=== PATIENT | female | born 1960 | race Caucasian/White ===

== ENCOUNTER → 2017-09-28 | Day surgery (SDC) | payer BC ==
[2017-09-28 07:18] VITALS: RESP 16; BMI 32.5
[2017-09-28 08:54] VITALS: BP 133/75; PULSE 59; TEMP 98
--- NOTE | 2017-09-28 09:20 | MM ---
EXAMINATION TYPE: MG stereo VAD BX RT DATE OF EXAM: 09/28/2017 COMPARISON: Outside mammogram August 28, 2017 and older study. CLINICAL HISTORY: Suspicious group of calcifications right breast. TECHNIQUE: Stereotactic guided core biopsy of right breast with clip placement and follow-up two-view mammogram. FINDINGS: The procedure of stereotactic guided core biopsy was explained to the patient. Benefits, alternatives, and risks were discussed. An informed consent was then obtained. [facility]. Shortness pathway was inferior approach. I performed the localization, then surgeon, Dr. Addison performed the remainder of the procedure. A vacuum assisted biopsy gun was used to obtain multiple core samples. The patient tolerated the procedure well without any immediate complication. The patient was kept in the radiology department for short stay after the procedure and then discharged home in stable condition. Targeted calcifications are identified in specimen mammogram. Post biopsy mammogram shows the clip to appear in satisfactory position relative to the targeted area of concern on the preprocedure images. No suspicious residual calcifications are present. IMPRESSION: SUCCESSFUL, UNCOMPLICATED STEREOTACTIC GUIDED CORE BIOPSY OF AREA OF CONCERN IN THE RIGHT BREAST, FULL PATHOLOGY RESULTS TO FOLLOW. Low index of suspicion noted at time of procedure. Pathology Results: High Risk RIGHT BREAST, SITE NOT OTHERWISE SPECIFIED (CORE BIOPSIES): PROLIFERATIVE FIBROCYSTIC CHANGES WITH SMALL RADIAL SCAR, CYST FORMATION, EARLY SCLEROSING ADENOSIS, AND MICROCALCIFICATIONS. Recommendation Surgical consult of the right breast. (for radial scar) MTDD
--- NOTE | 2017-09-28 10:21 | PCN ---
PROCEDURE NOTE The patient is a 56-year-old white female who on screening mammogram was noted to have an area of microcalcification of concern in the right breast. The location in the breast after review of the radiographs was in the lower lateral position of the breast. The patient had a breast examination performed. No supraclavicular, cervical, or axillary adenopathy of concern was noted. Multiple positional exam of each breast did not note any dominant mass or nodules of concern in either breast. No ultrasound was needed. The risks and benefits of the procedure were discussed with the patient and the patient wished to proceed with stereotactic core biopsy of the right breast. The location of the lesion was in the lower lateral portion of the right breast. The approach used was a CC from below the knee. The area was localized. The skin was prepped using Betadine and 1% lidocaine was used to anesthetize the area of concern. A 9-gauge vacuum-assisted needle was used and driven to the correct coordinates. Multiple core biopsies were obtained. Radiograph of the specimen was performed revealing microcalcifications in the specimen. A SecurMark was placed. The position of the marker was documented and the patient is going to follow with Dr. Addison as an outpatient. The specimen is being sent to . MMODL / IJN: [id number] /
== END ==
LOC: RADMAMWWP 06:53
PROVIDERS: ATTEND Surgery
DX: N60.12 Diffuse cystic mastopathy of left breast (principal); N60.21 Fibroadenosis of right breast; R92.0 Mammographic microcalcification found on diagnostic imaging of breast
CPT/HCPCS: 88305; 19081; A4648; J2001

== ENCOUNTER → 2017-11-24 | Outpatient (CLI) | payer BC ==
[2017-11-24 08:41] VITALS: BP 110/74; PULSE 68; TEMP 97.7; BMI 32.8
--- NOTE | 2017-11-24 09:30 | P.GSHP ---
History of Present Illness H&P Date: 11/24/17 Chief Complaint: radial scar status post stereo biopsy of the right breast The patient is a 56-year-old white female who is status post stereotactic core biopsy of the right breast on 09/28/2017. Pathology revealed a radial scar. After discussion it was decided that it would be best for her to undergo a needle localization and excisional biopsy of the area. Prior to stereotactic biopsy the patient did not feel any lesions of concern in her breasts. She did not have any nipple discharge or changes of concern. The mammogram was a routine mammogram. Initially it was felt that we could follow her conservatively however after we reviewed with pathology it was determined that it would be best for her to undergo needle localization and excisional biopsy of the area of radial scar. This is a second postoperative visit. Past surgical history: 1. Past medical history: 1. Hypertension Family history: no history of cancer menarche: 10 : 2, first at 19 breast fed: one menopause: 48 Social hsitory: smoke: stopped ten years ago alcohol: occasional drugs: none ROS: HEENT: none lung: none heart: none GI: none : none muscukeletal: arthritis neurologic: none skin: none bleeding: none - Constitutional Constitutional: Denies chills, Denies fever - EENT Eyes: bilateral as per HPI Ears: deny: decreased hearing, ear discharge, earache, tinnitus Ears, nose, mouth and throat: Denies headache, Denies sore throat - Breasts Breasts: bilateral: as per HPI - Cardiovascular Cardiovascular: Reports high blood pressure, Denies chest pain, Denies shortness of breath - Respiratory Respiratory: Denies cough, Denies 7 - Gastrointestinal Gastrointestinal: Denies abdominal pain, Denies diarrhea, Denies nausea, Denies vomiting - Musculoskeletal Musculoskeletal: Denies myalgias - Integumentary Integumentary: Denies pruritus, Denies rash - Neurological Neurological: Denies numbness, Denies weakness - Psychiatric Psychiatric: Denies anxiety, Denies depression - Endocrine Endocrine: Denies fatigue, Denies weight change - Hematologic/Lymphatic Comment: none - Allergic/Immunologic Allergic/Immunologic: Reports seasonal allergies Past Medical History Past Medical History: Hypertension History of Any Multi-Drug Resistant Organisms: None Reported Past Surgical History: Section Past Anesthesia/Blood Transfusion Reactions: No Reported Reaction Past Psychological History: No Psychological Hx Reported Smoking Status: Former smoker Past Alcohol Use History: Occasional Past Drug Use History: None Reported - Past Family History Mother Family Medical History: Hyperlipidemia Medications and Allergies Home Medications Medication Instructions Recorded Confirmed Type Calcium Carbonate/Vitamin D3 1 each PO BID 09/14/17 11/24/17 History [Caltrate 600 Plus D3 Tablet] Hydrochlorothiazide [Hydrodiuril] 25 mg PO QAM 09/14/17 11/24/17 History Lisinopril [Zestril] 10 mg PO HS 09/14/17 11/24/17 History Allergies Allergy/AdvReac Type Severity Reaction Status Date / Time No Known Allergies Allergy Verified 09/28/17 07:09 Surgical - Exam Vital Signs Temp Pulse BP Pulse Ox 97.7 F 68 110/74 98 11/24/17 08:38 11/24/17 08:38 11/24/17 08:38 11/24/17 08:38 - General well developed, well nourished, moderate distress - Eyes normal ocular movement, no icteric - ENT no hearing loss, no congestion - Neck no masses, trachea midline - Respiratory normal respiratory effort, clear to auscultation - Cardiovascular Rhythm: regular Heart Sounds: normal: S1, S2 - Abdomen Abdomen: soft, non tender, no guarding, no rigid, no rebound - Neurologic no disoriented, no combative - Musculoskeletal normal gait, normal posture - Psychiatric oriented to time, oriented to person, oriented to place, speech is normal, memory intact right breast: no masses prior site of stero biopsy well healed left breast: no masses bilateral axilla: no adenopathy of concern Results pathology reviewed Assessment and Plan Assessment: Imp/Plan 1. stero biopsy results reviewed with the patient. Initially we had hoped to follow conservatively however after review again with pathology it is felt that it would be best to do a needle localization and excisional biopsy of the area of radial scar. 2. Hypertension Plan: 1. Needle localization excisional biopsy of radial scar area. The patient understands the risks and benefits and wishes to proceed. Risks include bleeding infection reaction to anesthetic possibility we would not sampled the area. The patient will be scheduled in the near future. Please note that this is a postoperative visit. Cc: Dr. Spears
== END ==
LOC: WWCWWP 08:33
PROVIDERS: ATTEND Surgery
DX: Z53.9 Procedure and treatment not carried out, unspecified reason (principal)

== ENCOUNTER 2017-12-05 06:44 | Day surgery (SDC) | payer BC ==
[2017-11-30 15:41] VITALS: BMI 32.8
[~2017-12-05 06:44] MED LIST: ALPRAZolam 0.5 MG TAB PO PRN; DEXAMETHASONE SOD PHOSPHATE 10 MG/ML 1 ML VIAL IV ONE; HEPARIN SODIUM,PORCINE 5,000 UNIT/ML 1 ML VIAL SQ ONE; HYDROmorphone 0.5 MG/0.5 ML SYRINGE IVP PRN; LACTATED RINGERS 1,000 ML IV SCH; MORPHINE SULFATE 2 MG/ML SYRINGE IV PRN; ONDANSETRON 4 MG/2 ML VIAL IVP ONE; ONDANSETRON 4 MG/2 ML VIAL IVP PRN; Pre Op ABX Message 1 EACH MISC MISCELLANE ONE
[2017-12-05] MEDS ORDERED: LIDOCAINE 1% 20 ML VIAL (10MG/ML) FOR IV START INTRADERMA ONE (07:29)
[2017-12-05] MEDS ORDERED: SODIUM BICARB 4% 5 ML VIAL (0.48 MEQ/ML) MISCELLANE ONE (08:27)
[2017-12-05] MEDS ORDERED: LIDOCAINE 1% INJ 10MG/ML (20 ML MDV) SQ ONE ×3 (08:27→09:28)
[2017-12-05] MEDS ORDERED: MIDAZOLAM 2 MG/2 ML VIAL ONE (09:10)
[2017-12-05] MEDS ORDERED: LIDOCAINE 1% INJ 10MG/ML (20 ML MDV) ONE (09:10)
[2017-12-05] MEDS ORDERED: PROPOFOL 10 MG/ML 20 ML VIAL IV ONE (09:10)
[2017-12-05] MEDS ORDERED: fentaNYL (PF) 50 MCG/ML 2 ML AMP ONE (09:10)
[2017-12-05] MEDS ORDERED: HEPARIN SODIUM,PORCINE 5,000 UNIT/ML 1 ML VIAL SQ ONE (09:11)
[2017-12-05] MEDS ORDERED: LACTATED RINGERS 1,000 ML IV ONE (09:20)
--- NOTE | 2017-12-05 10:16 | P.OP ---
Date of Procedure: 12/05/17 Preoperative Diagnosis: Right breast radial scar on core biopsy Postoperative Diagnosis: same Procedure(s) Performed: needle Localization excisional biopsy area of concern right breast with titanium clip placement Anesthesia: GARIMAA Surgeon: Alejandra Addison Estimated Blood Loss (ml): 5 IV fluids (ml): 450 Pathology: other (right breast tissue) Condition: stable Disposition: PACU Indications for Procedure: radial Scar on right breast core biopsy Operative Findings: dense breast tissue Description of Procedure: The patient is a 57-year-old white female who underwent a stereotactic core biopsy of the right breast. Pathology revealed a radial scar and she was recommended to undergo needle localization and excisional biopsy. The patient was taken to the operating room following needle localization of area of concern in the right breast. Following induction of anesthesia the right breast was prepped and draped in a sterile fashion. Excision was performed around the area of the needle, hemostasis was attained using the electrocautery device. The specimen revealed the area of concern was present. After we were assured that hemostasis was attained the deep tissues were closed using a 3-0 Vicryl suture. Prior to this titanium clips were placed to localize the area of excision. The subcutaneous tissues were closed using a 4-0 Vicryl suture. The skin was closed using 4-0 Monocryl with Steri-Strips. The patient tolerated the procedure in stable condition. Prior to sending the specimen for radiographic evaluation it was painted for orientation. The patient tolerated the procedure in stable condition.
--- NOTE | 2017-12-05 10:18 | P.DS ---
Providers Attending physician: Alejandra Addison Primary care physician: Manish Spears Plan - Discharge Summary New Discharge Prescriptions: No Action Hydrochlorothiazide [Hydrodiuril] 25 mg PO QAM Lisinopril [Zestril] 10 mg PO HS Calcium Carbonate/Vitamin D3 [Caltrate 600 Plus D3 Tablet] 1 each PO BID Multivit/Folic Acid/Vit K1 [One-A-Day Women's 50 Plus Tab] 1 each PO DAILY Discharge Medication List Calcium Carbonate/Vitamin D3 [Caltrate 600 Plus D3 Tablet] 1 each PO BID [History] Hydrochlorothiazide [Hydrodiuril] 25 mg PO QAM 09/14/17 [History] Lisinopril [Zestril] 10 mg PO HS 09/14/17 [History] Multivit/Folic Acid/Vit K1 [One-A-Day Women's 50 Plus Tab] 1 each PO DAILY 11/30 [History] Follow up Appointment(s)/Referral(s): Alejandra Addison MD [STAFF PHYSICIAN] - 1 Week Activity/Diet/Wound Care/Special Instructions: Do not drive today Patient may shower after 24 hours Wear bra At all times until seen by Dr. Willoughby Discharge Disposition: HOME SELF-CARE
[2017-12-05 10:26] VITALS: TEMP 97.4
[2017-12-05 11:20] VITALS: BP 126/78; PULSE 84; RESP 24
--- NOTE | 2017-12-05 12:54 | MM ---
EXAMINATION TYPE: MG pre op needle loc RT DATE OF EXAM: 12/05/2017 COMPARISON: Mammogram 08/28/2017 CLINICAL HISTORY: Abnormal mammogram, radial scar TECHNIQUE: Needle localization with wire placement and surgical excision of area of concern in the right breast. FINDINGS: The procedure of needle localization with wire placement and than surgical excision was explained to the patient. Benefits, alternatives, and risks were discussed. An informed consent was then obtained. The shortest pathway for procedure was chosen. Lidocaine buffered with bicarbonate was used as anesthetic into the skin and subcutaneous tissue up to the level of area of concern. A 5 cm needle was used. It was placed via a lateral approach under mammographic guidance. Subsequent 90 degrees mammogram show the needle to be in satisfactory position relative to the targeted area. At this point, wire was placed and the needle was withdrawn. The wire was fixed to patient's skin. Images were marked for surgeon. The patient tolerated the procedure well without any immediate complication. The patient was kept in the radiology department for short stay after the procedure and then taken to surgery for surgical excision. Marker clip and wire are identified in specimen mammogram. The patient was kept in hospital for short stay after the procedure and then discharged home in stable condition. IMPRESSION: Successful, uncomplicated needle localization with wire placement and surgical excision of marker in the right breast, full pathology results to follow. Pathology Results: Benign RIGHT BREAST MASS, NEEDLE LOCALIZATION BIOPSY: Benign breast parenchyma showing a cyst with apocrine metaplasia, fibrocystic changes with sclerosing adenosis, usual type duct hyperplasia, apocrine metaplasia and prior biopsy artifact. Microcalcifications are noted. Recommendation Follow up mammogram of the right breast in 6 months. ANDREW
--- NOTE | 2017-12-05 15:03 | MM ---
Specimen radiograph HISTORY: Status post wire localization and excision Specimen radiograph shows the biopsy marker and wire to be present in specimen. Pathology Results: Benign RIGHT BREAST MASS, NEEDLE LOCALIZATION BIOPSY: Benign breast parenchyma showing a cyst with apocrine metaplasia, fibrocystic changes with sclerosing adenosis, usual type duct hyperplasia, apocrine metaplasia and prior biopsy artifact. Microcalcifications are noted. Recommendation Follow up mammogram of the right breast in 6 months. ANDREW
== END 2017-12-05 11:32 | disposition home or self-care (01) ==
LOC: OR 06:44
PROVIDERS: ATTEND Surgery
DX: N60.01 Solitary cyst of right breast (principal); N60.81 Other benign mammary dysplasias of right breast; N60.11 Diffuse cystic mastopathy of right breast; N60.21 Fibroadenosis of right breast; N60.91 Unspecified benign mammary dysplasia of right breast; R92.0 Mammographic microcalcification found on diagnostic imaging of breast; I10 Essential (primary) hypertension; M19.90 Unspecified osteoarthritis, unspecified site; J30.2 Other seasonal allergic rhinitis; E07.9 Disorder of thyroid, unspecified; Z79.899 Other long term (current) drug therapy; Z87.891 Personal history of nicotine dependence
CPT/HCPCS: 19125; 88307; 76098; 19281; J2250; J1644; J1100; J2405; J2001; J3010; J2704

== ENCOUNTER → 2017-12-14 | Outpatient (CLI) | payer BC ==
--- NOTE | 2017-12-14 13:05 | P.PN ---
Progress Note - Text Progress Note Date: 12/14/17 Patient is 57-year-old white female status post right breast needle local excisional biopsy. Pathology was benign. Patient has a small area of ecchymosis near the area of the biopsy. She has no complaints. She denies any pain. There is no evidence of any infection. Examination: Incision is clean and dry area of ecchymosis Impression/plan: 1. Follow-up in 2 weeks to reevaluate the area of ecchymosis 2. Right breast mammogram and physician exam in 6 months CC: Dr. Seaman
[2017-12-14 14:32] VITALS: BP 116/75; PULSE 76; BMI 33.2
== END ==
LOC: WWCWWP 12:31
PROVIDERS: ATTEND Surgery
DX: Z53.9 Procedure and treatment not carried out, unspecified reason (principal)

== ENCOUNTER → 2017-12-29 | Outpatient (CLI) | payer BC ==
[2017-12-29 10:21] VITALS: BP 134/65; PULSE 66; TEMP 97.3; BMI 32.8
--- NOTE | 2017-12-29 11:08 | P.PN ---
Subjective Progress Note Date: 12/29/17 Patient is a 57-year-old white female status post right breast excisional biopsy for a radial scar done on . Pathology was benign. At this time the patient is doing well with no complaints. There is no evidence of any erythema or fever. Lungs clear Heart: Regular rate and rhythm Incision: Clean and dry well-healed no evidence of infection Impression/plan: 1. Patient status post excisional biopsy for radial scar 2. Repeat right breast mammogram and physician exam in 6 months time from the biopsy CC: Dr. Spears Objective - Vital Signs Vital signs: Vital Signs Temp 97.3 F L 12/29/17 10:18 Pulse 66 12/29/17 10:18 Resp BP 134/65 12/29/17 10:18 Pulse Ox 98 12/29/17 10:18 Intake & Output 12/28/17 12/29/17 12/29/17 18:59 06:59 18:59 Weight 95.254 kg
== END | disposition home or self-care (01) ==
LOC: WWCWWP 10:09
PROVIDERS: ATTEND Surgery
DX: Z98.890 Other specified postprocedural states (principal); Z51.89 Encounter for other specified aftercare

== ENCOUNTER → 2018-06-28 | Outpatient (CLI) | payer BC ==
--- NOTE | 2018-06-28 13:24 | MM ---
Reason for exam: follow-up at short interval from prior study. Last mammogram was performed 4 years ago. History: Patient is postmenopausal and has history of high-risk lesion on a previous biopsy at age 56. Family history of breast cancer in paternal aunt. Benign MG pre op needle loc RT of the right breast, December 05, 2017. High risk MG stereo VAD BX RT of the right breast, September 28, 2017. Physical Findings: Nurse did not find any significant physical abnormalities on exam. MG 3D Diag Mammo W/Cad RT Spot compression CC, spot compression MLO, and ML view(s) were taken of the right breast. Prior study comparison: July 01, 2014, left breast MG work up mamm w CAD LT. June 25, 2014, bilateral MG screening mammo w CAD. The breast tissue is heterogeneously dense. This may lower the sensitivity of mammography. Stable benign calcifications. Post biopsy changes in the left breast. These results were verbally communicated with the patient and result sheet given to the patient on 06/28/18. ASSESSMENT: Benign, BI-RAD 2 RECOMMENDATION: Routine screening mammogram of both breasts in 6 months. Back on schedule.
== END | disposition home or self-care (01) ==
LOC: RADMAMWWP 06:56
PROVIDERS: ATTEND Surgery
DX: R92.8 Other abnormal and inconclusive findings on diagnostic imaging of breast (principal)
CPT/HCPCS: 77061; 77065

== ENCOUNTER → 2018-07-06 | Outpatient (CLI) | payer BC ==
[2018-07-06 09:51] VITALS: BP 129/82; PULSE 54; RESP 18; TEMP 97.6; BMI 31.3
--- NOTE | 2018-07-06 10:08 | P.PN ---
Subjective Progress Note Date: 07/06/18 Principal diagnosis: radial scar right breast Cintia is a 57-year-old white female status post right breast biopsy in December 2017. Pathology revealed a radial scar. The patient has no complaints related to her breast at this time. A repeat right breast mammogram was performed . This was felt to be stable and postbiopsy changes were noted in routine screening of both breasts in 6 months was recommended. Objective - Vital Signs Vital signs: Vital Signs Temp 97.6 F 07/06/18 09:47 Pulse 54 L 07/06/18 09:47 Resp 18 07/06/18 09:47 BP 129/82 07/06/18 09:47 Pulse Ox 98 07/06/18 09:47 Intake & Output 07/05/18 07/06/18 07/06/18 18:59 06:59 18:59 Weight 90.718 kg - Exam BMI 31.3 - Constitutional General appearance: Present: cooperative, obese - EENT Eyes: Present: EOMI ENT: Present: hearing grossly normal - Neck Neck: Present: normal ROM - Respiratory Respiratory: bilateral: CTA - Cardiovascular Rhythm: regular Heart sounds: normal: S1, S2 - Gastrointestinal General gastrointestinal: Present: soft - Integumentary Integumentary: Present: normal turgor - Musculoskeletal Musculoskeletal: Present: gait normal - Psychiatric Psychiatric: Present: A&O x's 3, appropriate affect, intact judgment & insight - Additional findings Additional findings: breast exam: Right breast: Multi-positional exam no dominant masses or nodules of concern, well-healed scar from prior biopsy Right axilla: No adenopathy of concern Left breast: Multi-positional exam no dominant masses or nodules of concern Left axilla: No adenopathy of concern Assessment and Plan Assessment: Impression: 1. Stable mammogram status post biopsy right breast approximately 6 months ago Plan: 1. Fibrocystic breast changes 2. Bilateral mammogram in 6 months with physician exam at that time CC: Dr. Spears
== END ==
LOC: WWCWWP 09:33
PROVIDERS: ATTEND Surgery
DX: Z53.9 Procedure and treatment not carried out, unspecified reason (principal)

== ENCOUNTER → 2019-01-09 | Outpatient (CLI) | payer BC ==
--- NOTE | 2019-01-10 13:05 | MM ---
Reason for exam: screening (asymptomatic). Last mammogram was performed 6 months ago. History: Patient is postmenopausal and has history of high-risk lesion on a previous biopsy at age 56. Family history of breast cancer in paternal aunt. Benign MG pre op needle loc RT of the right breast, December 05, 2017. High risk MG stereo VAD BX RT of the right breast, September 28, 2017. Physical Findings: A clinical breast exam by your physician is recommended on an annual basis and results should be correlated with mammographic findings. MG Screening Mammo w CAD Bilateral CC and MLO view(s) were taken. Prior study comparison: June 28, 2018, right breast MG 3d diag mammo w/cad RT. July 01, 2014, left breast MG work up mamm w CAD LT. The breast tissue is extremely dense which could obscure a lesion on mammography. Benign appearing bilateral calcifications. No suspicious abnormality. Post therapy change on the right. No significant changes when compared with prior studies. ASSESSMENT: Benign, BI-RAD 2 RECOMMENDATION: Routine screening mammogram of both breasts in 1 year.
== END | disposition home or self-care (01) ==
LOC: RADMAMWWP 07:17
PROVIDERS: ATTEND Surgery
DX: Z12.31 Encounter for screening mammogram for malignant neoplasm of breast (principal)
CPT/HCPCS: 77067

== ENCOUNTER → 2019-01-17 | Outpatient (CLI) | payer BC ==
[2019-01-17 09:45] VITALS: BP 151/81; PULSE 53; RESP 18; TEMP 98.2; BMI 30.5
--- NOTE | 2019-01-17 10:10 | P.PN ---
Subjective Progress Note Date: 01/17/19 Principal diagnosis: fibrocystic breast changes The patient is a 56-year-old white female who is status post stereotactic core biopsy of the right breast on 09/28/2017. Pathology revealed a radial scar. After discussion it was decided that it would be best for her to undergo a needle localization and excisional biopsy of the area, this was done in December of 2017. The patient had a right breast mammogram in June 2018 which is felt to be stable, and bilateral mammogram in 6 months was recommended to be back on schedule. She had a bilateral mammogram on 01-09-19 which was felt to be benign BIRADS 2. The patient has no history of any trauma or infection in her breast. She has no complaints of any adenopathy or nodularity in her breast for which she is concerned. Past surgical history: 1. 2. right breast open biopsy Past medical history: 1. Hypertension Family history: no history of cancer Hormonal History menarche: 10 : 2, first at 19 breast fed: one menopause: 48 Social history: smoke: stopped ten years ago alcohol: occasional drugs: none Review of systems: HEENT: Wears glasses Lungs: Negative Heart: Negative GI: Negative : History tract infections in the past Musculoskeletal: Negative ALLERGIES: Seasonal Hematologic: Negative Objective - Vital Signs Vital signs: Vital Signs Temp 98.2 F 01/17/19 09:43 Pulse 53 L 01/17/19 09:43 Resp 18 01/17/19 09:43 BP 151/81 01/17/19 09:43 Pulse Ox 98 01/17/19 09:43 Intake & Output 01/16/19 01/17/19 01/17/19 18:59 06:59 18:59 Weight 88.451 kg - Exam BMI 30.5 - Constitutional General appearance: Present: average body habitus - EENT Eyes: Present: EOMI ENT: Present: hearing grossly normal - Neck Neck: Present: normal ROM - Respiratory Respiratory: bilateral: CTA - Cardiovascular Rhythm: regular Heart sounds: normal: S1, S2 - Gastrointestinal Gastrointestinal Comment(s): no guarding or rebound General gastrointestinal: Present: soft - Integumentary Integumentary: Present: normal turgor - Musculoskeletal Musculoskeletal: Present: gait normal - Psychiatric Psychiatric: Present: A&O x's 3, appropriate affect, intact judgment & insight - Additional findings Additional findings: Breast examination: Right breast: Multi-positional exam no dominant masses or nodules of concern Right axilla: No adenopathy of concern Left breast: Multiple positional exam no dominant masses or nodules of concern Left axilla: No adenopathy of concern Assessment and Plan Assessment: Impression: 1. Fibrocystic breast changes 2. Mammogram BIRADS 2 3. Prior history of radial scar in the breast 4. Hypertension Plan: 1. Follow-up bilateral mammogram and exam in 1 year 2. Follow-up sooner if anything of concern CC: Dr. Manish briones
== END | disposition home or self-care (01) ==
LOC: WWCWWP 09:20
PROVIDERS: ATTEND Surgery
DX: Z53.9 Procedure and treatment not carried out, unspecified reason (principal)

== ENCOUNTER → 2020-01-13 | Outpatient (CLI) | payer BC ==
--- NOTE | 2020-01-15 10:21 | MM ---
Reason for exam: screening (asymptomatic). Last mammogram was performed 1 year ago. History: Patient is postmenopausal and has history of high-risk lesion on a previous biopsy at age 56. Family history of breast cancer in paternal aunt. Benign MG pre op needle loc RT of the right breast, December 05, 2017. High risk MG stereo VAD BX RT of the right breast, September 28, 2017. Physical Findings: A clinical breast exam by your physician is recommended on an annual basis and results should be correlated with mammographic findings. MG Screening Mammo w CAD Bilateral CC and MLO view(s) were taken. Prior study comparison: January 09, 2019, bilateral MG screening mammo w CAD. June 28, 2018, right breast MG 3d diag mammo w/cad RT. The breast tissue is extremely dense which could obscure a lesion on mammography. Post surgical changes right breast, stable. No significant changes when compared with prior studies. ASSESSMENT: Benign, BI-RAD 2 RECOMMENDATION: Routine screening mammogram of both breasts in 1 year.
== END | disposition home or self-care (01) ==
LOC: RADMAMWWP 08:04
PROVIDERS: ATTEND Surgery
DX: Z12.31 Encounter for screening mammogram for malignant neoplasm of breast (principal)
CPT/HCPCS: 77067

== ENCOUNTER → 2021-01-18 | Outpatient (CLI) | payer BC ==
--- NOTE | 2021-01-19 15:05 | MM ---
Reason for exam: screening (asymptomatic). Last mammogram was performed 1 year ago. History: Patient is postmenopausal and has history of high-risk lesion on a previous biopsy at age 56. Family history of breast cancer in paternal aunt. Benign MG pre op needle loc RT of the right breast, December 05, 2017. High risk MG stereo VAD BX RT of the right breast, September 28, 2017. Physical Findings: A clinical breast exam by your physician is recommended on an annual basis and results should be correlated with mammographic findings. MG Screening Mammo w CAD Bilateral CC and MLO view(s) were taken. Prior study comparison: January 13, 2020, bilateral MG screening mammo w CAD. January 09, 2019, bilateral MG screening mammo w CAD. June 28, 2018, right breast MG 3d diag mammo w/cad RT. The breast tissue is extremely dense which could obscure a lesion on mammography. Finding: There are intermediate concern, suspicious grouped/clustered, fine calcifications in the outer quadrant, middle position of the left breast on CC view, 9cm from the nipple. Post surgical changes right upper outer quadrant. New finding since January 13, 2020, January 09, 2019, and June 28, 2018. ASSESSMENT: Incomplete: need additional imaging evaluation, BI-RAD 0 RECOMMENDATION: Special view mammogram of the left breast. [facility] will attempt to contact patient to return for supplemental views.
== END | disposition home or self-care (01) ==
LOC: RADMAMWWP 07:57
PROVIDERS: ATTEND Surgery
DX: Z12.31 Encounter for screening mammogram for malignant neoplasm of breast (principal); Z78.0 Asymptomatic menopausal state; Z80.3 Family history of malignant neoplasm of breast
CPT/HCPCS: 77067

== ENCOUNTER → 2021-01-22 | Outpatient (CLI) | payer BC ==
[2021-01-22 10:34] VITALS: BP 145/83; PULSE 62; RESP 18; TEMP 97.6
--- NOTE | 2021-01-22 10:53 | P.PN ---
Subjective Progress Note Date: 01/22/21 Principal diagnosis: abnormal mammogram left breast Fibrocystic breast changes Cintia is a 60-year-old white female status post bilateral mammogram on . This was BIRAD 0 and additional views of the left breast recommended. The patient is status post a right breast stereo biopsy in 2018. Pathology revealed a radial scar. She subsequently underwent a needle localization and excisional biopsy in December 2017 which was benign. The patient has no complaints of any lumps masses or nodules in her breast. She is not complaining of any breast pain. She is had no recent history of any trauma or infection in the breast. Past surgical history: 1. 2. right breast open biopsy Past medical history: 1. Hypertension Family history: Maternal great aunt: Breast cancer Hormonal History menarche: 10 : 2, first at 19 breast fed: one menopause: 48 Social history: smoke: stopped 11 years ago alcohol: occasional drugs: none Review of systems: HEENT: Wears glasses Lungs: Negative Heart: Negative GI: Negative : urinary tract infections in the past Musculoskeletal: Negative ALLERGIES: Seasonal Hematologic: Negative Objective - Vital Signs Vital signs: Vital Signs Temp 97.6 F 01/22/21 10:32 Pulse 62 01/22/21 10:32 Resp 18 01/22/21 10:32 BP 145/83 01/22/21 10:32 Pulse Ox 98 01/22/21 10:32 Intake & Output 01/21/21 01/22/21 01/22/21 18:59 06:59 18:59 Weight 96.162 kg - Constitutional General appearance: Present: cooperative - EENT Eyes: Present: EOMI ENT: Present: hearing grossly normal - Neck Neck: Present: normal ROM - Respiratory Respiratory: bilateral: CTA - Cardiovascular Heart sounds: normal: S1, S2 - Integumentary Integumentary: Present: normal turgor - Musculoskeletal Musculoskeletal: Present: gait normal - Psychiatric Psychiatric: Present: A&O x's 3, appropriate affect, intact judgment & insight - Additional findings Additional findings: Breast Exam: BRA:40DD Inspection: Left breast larger than right breast, no skin dimpling or changes Palpation: Right breast: Multiple positional exam fibrocystic changes no dominant masses or nodules of concern Right axilla: No adenopathy of concern Left breast multiple positional exam fibrocystic changes, no dominant masses or nodules of concern Left axilla: No adenopathy of concern Mammogram reviewed personally with Dr. Zamora/microcalcifications of concern noted in the left breast Assessment and Plan Assessment: Impression: 1. Bilateral fibrocystic breast changes 2. Microcalcifications of concern left breast/recommend diagnostic mammogram 3. Remote family history of breast cancer Plan: At this time the patient states that she cannot afford to have a diagnostic mammogram. She will agree to a repeat diagnostic mammogram in 6 months. Of discussed with her that if this is a cancer that delay in diagnosis could be detrimental to her health she understands that and states that she cannot have the mammogram at this time. We have offered social work to see the patient and she has declined. The recommendation is for diagnostic mammogram at this time of the left breast. The patient has declined. She is in full understanding that doing so could result in delayed diagnosis of a breast cancer which could be detrimental to her health and even result in . CC: Dr. Spears
== END ==
LOC: WWCWWP 09:25
PROVIDERS: ATTEND Surgery
DX: N60.11 Diffuse cystic mastopathy of right breast (principal); N60.12 Diffuse cystic mastopathy of left breast; I10 Essential (primary) hypertension; Z80.3 Family history of malignant neoplasm of breast; Z87.891 Personal history of nicotine dependence

== ENCOUNTER → 2021-07-21 | Outpatient (CLI) | payer BC ==
--- NOTE | 2021-07-21 14:35 | MM ---
Reason for exam: additional evaluation requested from prior study. Last mammogram was performed 6 months ago. History: Patient is postmenopausal and has history of high-risk lesion on a previous biopsy at age 56. Family history of breast cancer in paternal aunt. Benign MG pre op needle loc RT of the right breast, December 05, 2017. High risk MG stereo VAD BX RT of the right breast, September 28, 2017. Physical Findings: Nurse did not find any significant physical abnormalities on exam. MG Diagnostic Mammo LT w CAD CC, MLO, CC with magnification, LM with magnification, and LM view(s) were taken of the left breast. Prior study comparison: January 18, 2021, bilateral MG screening mammo w CAD. January 13, 2020, bilateral MG screening mammo w CAD. The breast tissue is heterogeneously dense. This may lower the sensitivity of mammography. Finding: There are three fine, grouped/clustered calcifications in the posterior position of the left breast on CC, 12cm from the nipple. There is a chronic nodularity in the left breast. There is no discrete abnormality including area of concern outer CC left breast from 2020. New finding since January 18, 2021 and January 13, 2020. These results were verbally communicated with the patient and result sheet given to the patient on 07/21/21. ASSESSMENT: Suspicious, BI-RAD 4 RECOMMENDATION: Stereotactic core biopsy of the left breast. Called office with mammographic findings and has scheduled an appointment for the patient for 07/29/21 at 8:[address] Addison. PRELIMINARY REPORT CALLED AND FAXED TO DR. ADDISON ON 07/21/21.
== END | disposition home or self-care (01) ==
LOC: RADMAMWWP 07:40
PROVIDERS: ATTEND Surgery
DX: R92.8 Other abnormal and inconclusive findings on diagnostic imaging of breast (principal); R92.1 Mammographic calcification found on diagnostic imaging of breast; Z80.3 Family history of malignant neoplasm of breast; Z78.0 Asymptomatic menopausal state
CPT/HCPCS: 77065

== ENCOUNTER → 2021-07-29 | Outpatient (CLI) | payer BC ==
[2021-07-29 08:57] VITALS: BP 134/85; PULSE 70; RESP 18; TEMP 98.1
--- NOTE | 2021-07-29 09:16 | P.PN ---
Subjective Progress Note Date: 07/29/21 Principal diagnosis: abnormal left breast mammogram abnormal mammogram left breast Fibrocystic breast changes Cintia is a 60-year-old white female status post bilateral mammogram on . This was BIRAD 0 and additional views of the left breast recommended. The patient is status post a right breast stereo biopsy in 2018. Pathology revealed a radial scar. She subsequently underwent a needle localization and excisional biopsy in December 2017 which was benign. The patient has no complaints of any lumps masses or nodules in her breast. She is not complaining of any breast pain. She is had no recent history of any trauma or infection in the breast. The patient declined additional left breast mammogram at that time and agreed to a repeat in 6 months of the left breast. This was done on 07-21-21. This showed three fine grouped clustered calcifications in the left breast in the posterior position for which sterotactic biopsy was recommended. The patient does not note any new lumps masses or nodules of concern in either breast. Past surgical history: 1. 2. right breast open biopsy Past medical history: 1. Hypertension Family history: Maternal great aunt: Breast cancer Hormonal History menarche: 10 : 2, first at 19 breast fed: one menopause: 48 Social history: smoke: stopped 11 years ago alcohol: occasional drugs: none Review of systems: HEENT: Wears glasses Lungs: Negative Heart: Negative GI: Negative : urinary tract infections in the past Musculoskeletal: Negative ALLERGIES: Seasonal Hematologic: Negative Objective - Vital Signs Vital signs: Vital Signs Temp 98.1 F 07/29/21 08:55 Pulse 70 07/29/21 08:55 Resp 18 07/29/21 08:55 BP 134/85 07/29/21 08:55 Pulse Ox 97 07/29/21 08:55 Intake & Output 07/28/21 07/29/21 07/29/21 18:59 06:59 18:59 Weight 97.069 kg - Exam BMI 33.5 - Constitutional General appearance: Present: cooperative - EENT ENT: Present: hearing grossly normal - Neck Neck: Present: normal ROM - Respiratory Respiratory: bilateral: CTA - Cardiovascular Rhythm: regular Heart sounds: normal: S1, S2 - Gastrointestinal General gastrointestinal: Present: soft - Integumentary Integumentary: Present: normal turgor - Musculoskeletal Musculoskeletal: Present: gait normal - Psychiatric Psychiatric: Present: appropriate affect, intact judgment & insight - Additional findings Additional findings: Breast Exam: BRA: 40DD inspection bilateral grade 3 ptosis Palpation: Right breast: Multi-positional exam fibrocystic changes no dominant masses or nodules of concern Right axilla: No adenopathy of concern Left breast: Multi-positional exam fibrocystic changes no dominant masses or nodules of concern Left axilla: No adenopathy of concern Assessment and Plan Assessment: Impression: Radiographic abnormality left breast Fibrocystic breast changes Plan: Stereotactic core biopsy left breast Risks and benefits of procedure discussed. Risks include but are not limited to bleeding, infection, reaction to the anesthetic. If the results were to be discordant then possible open biopsy might be recommended. Alternatives such as watchful waiting or resection in the operating room are considered but not recommended. Patient understands and this will be scheduled in the near future CC: Dr. Spears
== END ==
LOC: WWCWWP 08:30
PROVIDERS: ATTEND Surgery
DX: N60.12 Diffuse cystic mastopathy of left breast (principal); I10 Essential (primary) hypertension; Z87.891 Personal history of nicotine dependence; Z79.899 Other long term (current) drug therapy

== ENCOUNTER → 2021-08-27 | Day surgery (SDC) | payer BC ==
[2021-08-27 07:14] VITALS: RESP 16; TEMP 98.6
[2021-08-27 09:02] VITALS: BP 133/83; PULSE 60
--- NOTE | 2021-08-27 09:17 | P.PCN ---
Date of Procedure: 08/27/21 Preoperative Diagnosis: microcalcifications of concern left breast Postoperative Diagnosis: Same Procedure(s) Performed: Stereotactic core biopsy left breast Anesthesia: local Surgeon: Alejandra Addison Pathology: other (Breast tissue with microcalcifications of concern noted radiographically) Condition: stable Disposition: same day Indications for Procedure: Microcalcifications of concern left breast Operative Findings: Radiographic specimen revealed microcalcifications of concern Description of Procedure: Cintia is a 60-year-old white female who on a mammogram was noted to have increasing calcifications of concern in her left breast in posterior position of the left breast 12 mL from the nipple. The mammograms were reviewed with radiology and it was felt this stereotactic core biopsy should be performed. The patient was examined and risk and benefits of the procedure were discussed with the patient. Risks include but are not limited to bleeding, infection, reaction to the anesthetic. Alternatives such as watchful waiting or open biopsy in the operating room were noted but not recommended. The patient agreed to stereotactic core biopsy. The patient was brought to the stereotactic core biopsy room. She was positioned prone on the lo-rad table. A alarm installation technician film was obtained. A CC from above approach was utilized. The area of concern was identified. The lesion was targeted. The breast was prepped using Betadine. 20 mL of 1% lidocaine were used to anesthetize the area of concern. A 12-gauge vacuum-assisted core rotating biopsy needle was driven to the correct coordinates. A prefire film was obtained and the needle was noted to be in the correct location. The needle was fired and the needle was noted to be in the correct location on a post-fire film. 12 core specimens were obtained. Radiograph of the specimen revealed that the microcalcifications of concern were sampled. A secure becki top hat clip was placed. Radiograph revealed that the post biopsy secure-becki clip was in the correct location. The patient tolerated the procedure in stable condition. The specimen was sent to pathology. The patient will follow-up with Dr. Willoughby next week.
--- NOTE | 2021-08-27 12:06 | MM ---
Cintia is a 60-year-old white female who on a mammogram was noted to have increasing calcifications of concern in her left breast in posterior position of the left breast 12 mL from the nipple. The mammograms were reviewed with radiology and it was felt that stereotactic core biopsy should be performed. The patient was examined and risk and benefits of the procedure were discussed with the patient. Risks include but are not limited to bleeding, infection, reaction to the anesthetic. Alternatives such as watchful waiting or open biopsy in the operating room were noted but not recommended. The patient agreed to stereotactic core biopsy. The patient was brought to the stereotactic core biopsy room. She was positioned prone on the lo-rad table. A principal process engineer film was obtained. A CC from above approach was utilized. The area of concern was identified. The lesion was targeted. The breast was prepped using Betadine. 20 mL of 1% lidocaine were used to anesthetize the area of concern. A 12-gauge vacuum-assisted core rotating biopsy needle was driven to the correct coordinates. A prefire film was obtained and the needle was noted to be in the correct location. The needle was fired and the needle was noted to be in the correct location on a post-fire film. 12 core specimens were obtained. Radiograph of the specimens revealed that the microcalcifications of concern were sampled. A secure becki top hat clip was placed. Radiograph revealed that the post biopsy secure-becki clip was in the correct location. The patient tolerated the procedure in stable condition. The specimen was sent to pathology. The patient will follow-up with Dr. Willoughby next week. ANDREW
== END | disposition home or self-care (01) ==
LOC: RADMAMWWP 06:59
PROVIDERS: ATTEND Surgery
DX: N60.22 Fibroadenosis of left breast (principal); R92.0 Mammographic microcalcification found on diagnostic imaging of breast
CPT/HCPCS: 19081; A4648; J2001; 88305

== ENCOUNTER → 2021-09-02 | Outpatient (CLI) | payer BC ==
[2021-09-02 15:40] VITALS: BP 144/69; PULSE 81; RESP 17; TEMP 97.9
--- NOTE | 2021-09-02 16:07 | P.PN ---
Subjective Progress Note Date: 09/02/21 Principal diagnosis: Atypical ductal hyperplasia left breast Cintia is a 60-year-old white female status post posterior tactic core biopsy of the left breast and 220 522. Pathology revealed focal atypical ductal hyperplasia/flat epithelial atypia with microcalcifications. Of significance is the fact that she underwent an open right breast biopsy after stereo biopsy in 2018. This was benign. The patient had no complaints of any lumps masses or nodules in her breast. She tolerated the stereotactic core biopsy without difficulty. Past surgical history: Right breast open biopsy Past medical history: Hypertension Family history: Maternal great aunt: Breast cancer Hormonal history: Menarche: 10 , breast fed positive, first at 19 Menopause: 48 Social history: Smoke: Stopped 11 years ago Alcohol: Occasional Drugs: Negative Review of systems: HEENT wears glasses Lungs: Negative Heart: Negative GI: Negative : Urinary tract infections in the past Musculoskeletal: Negative ALLERGIES: Seasonal Hematologic: Negative Objective - Vital Signs Vital signs: Vital Signs Temp 97.9 F 09/02/21 15:38 Pulse 81 09/02/21 15:38 Resp 17 09/02/21 15:38 BP 144/69 09/02/21 15:38 Pulse Ox 99 09/02/21 15:38 Intake & Output 09/01/21 09/02/21 09/02/21 18:59 06:59 18:59 Weight 96.615 kg - Exam BMI 33.4 - Constitutional General appearance: Present: cooperative - EENT Eyes: Present: EOMI ENT: Present: hearing grossly normal - Neck Neck: Present: normal ROM - Respiratory Respiratory: bilateral: CTA - Cardiovascular Rhythm: regular Heart sounds: normal: S1, S2 - Integumentary Integumentary: Present: normal - Musculoskeletal Musculoskeletal: Present: gait normal - Psychiatric Psychiatric: Present: A&O x's 3, appropriate affect, intact judgment & insight - Additional findings Additional findings: Breast Exam: BRA: 40DD Inspection: Right breast smaller than left breast, macromastia, bilateral grade 3 ptosis, bilateral shoulder notching Palpation: Right breast: Multi-positional exam fibrocystic changes no dominant masses or nodules of concern Right axilla: No adenopathy of concern Left breast: Multiple positional exam fibrocystic changes no dominant masses or nodules of concern After axilla: No adenopathy of concern Patient has some mild ecchymosis at the biopsy site on the left with no evidence of infection or hematoma Assessment and Plan Assessment: Impression: Atypical ductal hyperplasia left breast on stereotactic core biopsy Fibrocystic breast changes Plan: Needle localization excisional lumpectomy left breast, patient would like this done via reduction mammoplasty if possible Patient does have bilateral shoulder notching She has intermittent skin irritation and breakdown under her breasts secondary to the heaviness of the breast and the skin on skin
== END ==
LOC: WWCWWP 15:30
PROVIDERS: ATTEND Surgery
DX: N60.92 Unspecified benign mammary dysplasia of left breast (principal); N60.11 Diffuse cystic mastopathy of right breast; I10 Essential (primary) hypertension; Z87.891 Personal history of nicotine dependence

== ENCOUNTER 2021-11-30 07:14 | Day surgery (SDC) | payer BC ==
[2021-11-26 08:27] VITALS: BMI 33.3
[~2021-11-30 07:14] MED LIST changes: -ALPRAZolam 0.5 MG TAB PO PRN; -DEXAMETHASONE SOD PHOSPHATE 10 MG/ML 1 ML VIAL IV ONE; +DEXAMETHASONE SOD PHOSPHATE 4 MG/ML 1 ML VIAL IV ONE; -HEPARIN SODIUM,PORCINE 5,000 UNIT/ML 1 ML VIAL SQ ONE; +HEPARIN SODIUM,PORCINE/PF 5,000 UNIT/0.5 ML SYRINGE SQ PRN; +LIDOCAINE 1% (10MG/ML) FOR IV START INTRADERMA PRN; +METOCLOPRAMIDE 5 MG/ML 2 ML VIAL IVP PRN; -MORPHINE SULFATE 2 MG/ML SYRINGE IV PRN; -ONDANSETRON 4 MG/2 ML VIAL IVP PRN
[2021-11-30 07:31] VITALS: RESP 16
[2021-11-30] MEDS ORDERED: ONDANSETRON 4 MG/2 ML VIAL ONE (07:47)
[2021-11-30] MEDS ORDERED: LIDOCAINE 1% INJ 10MG/ML (20 ML MDV) SQ ONE ×2 (08:43→11:15)
[2021-11-30] MEDS ORDERED: LIDOCAINE 2% INJ 20 MG/ML (2 ML VIAL) ONE (10:46)
[2021-11-30] MEDS ORDERED: MIDAZOLAM 2 MG/2 ML VIAL ONE (10:46)
[2021-11-30] MEDS ORDERED: fentaNYL (PF) 50 MCG/ML 2 ML AMP ONE (10:46)
[2021-11-30] MEDS ORDERED: HYDROmorphone (PF) 1 MG/ML ONE (10:46)
[2021-11-30] MEDS ORDERED: PROPOFOL 10 MG/ML 20 ML VIAL IV ONE (10:46)
[2021-11-30] MEDS ORDERED: ePHEDrine 50 MG/ML 1 ML VIAL ONE (10:46)
[2021-11-30] MEDS ORDERED: SODIUM CHLORIDE 0.9% 50 ML with ceFAZolin 2,000 MG IV ONE ×2 (10:50)
--- NOTE | 2021-11-30 13:16 | P.OP ---
Date of Procedure: 11/30/21 Preoperative Diagnosis: Macromastia, atypical ductal hyperplasia on core biopsy Postoperative Diagnosis: Same Procedure(s) Performed: Left breast needle localization lumpectomy, reduction mammoplasty Anesthesia: GARIMAA Surgeon: Alejandra Addison Estimated Blood Loss (ml): 50 IV fluids (ml): 500 Pathology: other (breast tissue) Condition: stable Disposition: same day Indications for Procedure: Symptomatic macromastia, core biopsy atypical hyperplasia Operative Findings: Dense breast tissue Description of Procedure: Preoperatively the area of concern was localized in the radiology department. In the preoperative markings were placed for a reduction mammoplasty incisions. The patient was taken to the operative suite and following induction of anesthesia the left breast was prepped and draped in a sterile fashion. The area of the inferior pedicle was de-epithelialized. Using the markings placed in the preoperative area the incision through the reduction mammoplasty. The medial and lateral tissue wedges were excised. Partial resection of tissue was removed. The tiissue was weighed and weighed .53 Kilo. The area of the needle localization was clearly identified in this tissue was removed. This portion of the specimen was painted for orientation. Titanium clips were placed in the area of the needle localization had been performed. Should be noted that this was in the inferior pedicle portion of the breast. The specimen was sent to radiology and the area of concern appeared to have been removed. After assured that hemostasis was attained a #10 ELDON drain was placed laterally. This was secured in place using a nylon suture. The skin flaps were secured using 3-0 Vicryl suture. Interrupted 3-0 Vicryl sutures. Running 3-0 subcutaneous sutures were placed. This was followed by 4-0 subcuticular Monocryl sutures. Nylon skin sutures were placed. The patient tolerated the procedure in stable condition. All instrument and sponge counts were correct at the end of the case. The specimen was sent to pathology.
--- NOTE | 2021-11-30 13:18 | P.DS ---
Providers Attending physician: Alejandra Addison Primary care physician: Manish Spears Plan - Discharge Summary Discharge Rx Participant: No New Discharge Prescriptions: No Action hydroCHLOROthiazide [Hydrodiuril] 25 mg PO QAM lisinopriL [Zestril] 10 mg PO HS Calcium Carbonate/Vitamin D3 [Caltrate 600 Plus D3 Tablet] 1 each PO BID Atorvastatin [Lipitor] 10 mg PO HS Discharge Medication List Calcium Carbonate/Vitamin D3 [Caltrate 600 Plus D3 Tablet] 1 each PO BID 09/14/17 [History] hydroCHLOROthiazide [Hydrodiuril] 25 mg PO QAM 09/14/17 [History] lisinopriL [Zestril] 10 mg PO HS 09/14/17 [History] Atorvastatin [Lipitor] 10 mg PO HS 01/22/21 [History] Follow up Appointment(s)/Referral(s): Alejandra Addison MD [STAFF PHYSICIAN] - 1 Week Activity/Diet/Wound Care/Special Instructions: do not drive until seen by DR. Willoughby may shower after 72 hours wear bra at all times Discharge Disposition: HOME SELF-CARE
[2021-11-30 13:44] VITALS: TEMP 97
[2021-11-30 14:42] VITALS: BP 112/73; PULSE 87
--- NOTE | 2021-12-06 09:10 | MM ---
Risk Values: Marley 5 year model risk: 2.1%. NCI Lifetime model risk: 8.9%. Prior Study Comparison: 01/13/2020 Bilateral Screening Mammogram, [facility]. 01/18/2021 Bilateral Screening Mammogram, [facility]. 07/21/2021 Left Diagnostic Mammogram, [facility]. Pathology Description: Approach: CC FA Needle Type: 7 cm Kopan The procedure of needle localization with wire placement and than surgical excision was explained to the patient. Benefits, alternatives, and risks were discussed. An informed consent was then obtained. The shortest pathway for procedure was chosen. Shortest pathway was a superior approach. The overlying skin was prepped and draped in usual sterile fashion. Lidocaine was used as anesthetic into the skin and subcutaneous tissue up to the level of area of concern. 9 cm Kopans needle was used. It was placed via a superior approach under mammographic guidance. Subsequent 90 degrees mammogram show the needle to be in satisfactory position relative to the targeted area. At this point, wire was placed and the needle was withdrawn. The wire was fixed to patient's skin. Images were marked for surgeon. The patient tolerated the procedure well without any immediate complication. The patient was kept in the radiology department for short stay after the procedure and then taken to surgery for surgical excision. Targeted clip and residual calcifications, as well as the wire are identified in specimen mammogram. There is lumpectomy specimen as large in keeping with patient's reduction mammoplasty. The targeted site is located along the periphery of the specimen. The patient was kept in hospital for short stay after the procedure and then discharged home in stable condition. Impression: Successful, uncomplicated needle localization with wire placement and surgical excision of high risk ADH in the left breast, full pathology results to follow. Accompanying reduction mammoplasty. The targeted clip and residual microcalcifications are located along the periphery of the specimen. Pathology Results: Result: High risk, Atypical ductal hyperplasia. A. LEFT BREAST, LUMPECTOMY: Focal atypical ductal hyperplasia/flat epithelial atypia (ADH/FEA). See note. All margins benign. Sclerosing adenosis with microcalcification, fibrous scar with biopsy site change, focal usual ductal hyperplasia and fibrocystic change with columnar cell change. Sections examined negative for diagnostic features of in situ or invasive carcinoma. Benign skin with intradermal melanocytic nevus. B. DESIGNATED "REDUCTION MAMMOPLASTY TISSUE": Benign breast tissue with fibrosis, sclerosing adenosis and fibrocystic change with microcalcification and columnar cell change. All margins benign. All sections examined negative for diagnostic in situ or invasive carcinoma. Benign skin. Overall Assessment: High risk Management: Surgical Consultation of the left breast. Electronically signed and approved by: Lashonda Lomas M.D. Radiologist
--- NOTE | 2021-12-06 09:10 | MM ---
Risk Values: Marley 5 year model risk: 2.1%. NCI Lifetime model risk: 8.9%. Prior Study Comparison: 01/13/2020 Bilateral Screening Mammogram, [facility]. 01/18/2021 Bilateral Screening Mammogram, [facility]. 07/21/2021 Left Diagnostic Mammogram, [facility]. Pathology Description: Approach: CC FA Needle Type: 7 cm Kopan The procedure of needle localization with wire placement and than surgical excision was explained to the patient. Benefits, alternatives, and risks were discussed. An informed consent was then obtained. The shortest pathway for procedure was chosen. Shortest pathway was a superior approach. The overlying skin was prepped and draped in usual sterile fashion. Lidocaine was used as anesthetic into the skin and subcutaneous tissue up to the level of area of concern. 9 cm Kopans needle was used. It was placed via a superior approach under mammographic guidance. Subsequent 90 degrees mammogram show the needle to be in satisfactory position relative to the targeted area. At this point, wire was placed and the needle was withdrawn. The wire was fixed to patient's skin. Images were marked for surgeon. The patient tolerated the procedure well without any immediate complication. The patient was kept in the radiology department for short stay after the procedure and then taken to surgery for surgical excision. Targeted clip and residual calcifications, as well as the wire are identified in specimen mammogram. There is lumpectomy specimen as large in keeping with patient's reduction mammoplasty. The targeted site is located along the periphery of the specimen. The patient was kept in hospital for short stay after the procedure and then discharged home in stable condition. Impression: Successful, uncomplicated needle localization with wire placement and surgical excision of high risk ADH in the left breast, full pathology results to follow. Accompanying reduction mammoplasty. The targeted clip and residual microcalcifications are located along the periphery of the specimen. Pathology Results: Result: High risk, Atypical ductal hyperplasia. A. LEFT BREAST, LUMPECTOMY: Focal atypical ductal hyperplasia/flat epithelial atypia (ADH/FEA). See note. All margins benign. Sclerosing adenosis with microcalcification, fibrous scar with biopsy site change, focal usual ductal hyperplasia and fibrocystic change with columnar cell change. Sections examined negative for diagnostic features of in situ or invasive carcinoma. Benign skin with intradermal melanocytic nevus. B. DESIGNATED "REDUCTION MAMMOPLASTY TISSUE": Benign breast tissue with fibrosis, sclerosing adenosis and fibrocystic change with microcalcification and columnar cell change. All margins benign. All sections examined negative for diagnostic in situ or invasive carcinoma. Benign skin. Overall Assessment: High risk Management: Surgical Consultation of the left breast. Electronically signed and approved by: Lashonda Lomas M.D. Radiologist
== END 2021-11-30 14:59 | disposition home or self-care (01) ==
LOC: OR 07:14
PROVIDERS: ATTEND Surgery
DX: N60.22 Fibroadenosis of left breast (principal); N60.12 Diffuse cystic mastopathy of left breast; R92.0 Mammographic microcalcification found on diagnostic imaging of breast; N62 Hypertrophy of breast; I10 Essential (primary) hypertension; Z80.3 Family history of malignant neoplasm of breast; Z98.891 History of uterine scar from previous surgery; Z98.890 Other specified postprocedural states; Z79.899 Other long term (current) drug therapy; E78.00 Pure hypercholesterolemia, unspecified; E66.9 Obesity, unspecified; Z68.33 Body mass index [BMI] 33.0-33.9, adult; Z83.42 Family history of familial hypercholesterolemia; Z83.3 Family history of diabetes mellitus; Z80.1 Family history of malignant neoplasm of trachea, bronchus and lung; Z87.891 Personal history of nicotine dependence
CPT/HCPCS: 88307; 76098; 19281; 19301; J2250; J1100; J2405; J0690; J2001 ×2; J3010; J1170 ×2; J2704; J1644

== ENCOUNTER → 2021-12-06 | Outpatient (CLI) | payer BC ==
[2021-12-06 08:50] VITALS: BP 169/90; PULSE 80; RESP 18; TEMP 98.1
--- NOTE | 2021-12-06 09:19 | P.PN ---
Progress Note - Text Progress Note Date: 12/06/21 Cintia is a 61-year-old white female status post left breast needle localization excisional lumpectomy for atypical ductal hyperplasia performed on [id number]. This was done via a reduction mammoplasty incision. He has minimal drainage from her ELDON drain. She has had some drainage around the drain which has decreased. Physical examination: Lungs: Clear Heart: Regular rate and rhythm Incision: Mild erythema at trifurcation at the inferior aspect of the incision Ecchymosis medial and lateral flaps improving Plan: Removal of ELDON drain/this was removed there was some old serous dark drainage approximately 30 mL follow up one week CC: Dr. Spears
== END ==
LOC: WWCWWP 08:31
PROVIDERS: ATTEND Surgery
DX: Z48.817 Encounter for surgical aftercare following surgery on the skin and subcutaneous tissue (principal)

== ENCOUNTER → 2021-12-10 | Outpatient (CLI) | payer BC ==
[2021-12-10 08:41] VITALS: BP 122/66; PULSE 79; RESP 17; TEMP 98.2
--- NOTE | 2021-12-10 09:04 | P.PN ---
Progress Note - Text Progress Note Date: 12/10/21 Cintia is a 61-year-old white female status post left breast needle localization excisional lumpectomy for atypical ductal hyperplasia performed on . This was done via a reduction mammoplasty incision. Her ELDON drain was removed last week. She is not complaining of anything at this time. Physical examination: Lungs: Clear Heart: Regular rate and rhythm Incision: Mild erythema at trifurcation at the inferior aspect of the incision Ecchymosis medial and lateral flaps improving Plan: Remove sutures follow up one week CC: Dr. Spears
== END ==
LOC: WWCWWP 08:31
PROVIDERS: ATTEND Surgery
DX: Z48.817 Encounter for surgical aftercare following surgery on the skin and subcutaneous tissue (principal); N60.92 Unspecified benign mammary dysplasia of left breast; Z87.891 Personal history of nicotine dependence

== ENCOUNTER → 2021-12-16 | Outpatient (CLI) | payer BC ==
[2021-12-16 08:41] VITALS: BP 122/75; PULSE 78; RESP 17; TEMP 98.2
--- NOTE | 2021-12-16 08:53 | P.PN ---
Progress Note - Text Progress Note Date: 12/16/21 Cintia is a 61-year-old white female status post left breast needle localization excisional [place] [id number]. This was done via a reduction mammoplasty incision. She is not complaining of anything at this time. Physical examination: Lungs: Clear Heart: Regular rate and rhythm Incision: Mild erythema at trifurcation at the inferior aspect of the incision improved Ecchymosis medial and lateral flaps resolved Patient with some skin breakdown near the Steri-Strips Steri-Strips removed Nipple remains somewhat inverted but no evidence of infection Plan: Remove Steri-Strips follow up 2 weeks Follow up sooner any questions or concerns CC: Dr. Spears
== END ==
LOC: WWCWWP 08:34
PROVIDERS: ATTEND Surgery
DX: Z48.817 Encounter for surgical aftercare following surgery on the skin and subcutaneous tissue (principal); N60.92 Unspecified benign mammary dysplasia of left breast; Z87.891 Personal history of nicotine dependence

== ENCOUNTER → 2021-12-29 | Outpatient (CLI) | payer BC ==
[2021-12-29 12:00] VITALS: BP 135/84; PULSE 77; RESP 18; TEMP 97.8
--- NOTE | 2021-12-29 13:38 | P.PN ---
Progress Note - Text Progress Note Date: 12/29/21 Patient is seen today for postoperative evaluation. At this time she is doing well with no complaints. Incision is clean and dry there is no evidence of infection. She has some area of necrosis at the superior aspect of the areolar margin which is demarcating and appears to be healing well at this time. The patient will follow-up in 1 months, she will follow up sooner if she has any onc or concerns.
== END ==
LOC: WWCWWP 11:47
PROVIDERS: ATTEND Surgery
DX: Z48.817 Encounter for surgical aftercare following surgery on the skin and subcutaneous tissue (principal)

== ENCOUNTER → 2022-01-28 | Outpatient (CLI) | payer BC ==
[2022-01-28 12:42] VITALS: BP 126/65; PULSE 86; RESP 16; TEMP 98
--- NOTE | 2022-01-28 13:03 | P.PN ---
Subjective Progress Note Date: 01/28/22 Principal diagnosis: Symptomatic macromastia Atypical ductal hyperplasia left breast Cintia is a 61-year-old white female status stero-tactic core biopsy of the left breast on . Pathology revealed focal atypical ductal hyperplasia/flat epithelial atypia with microcalcifications. Of significance is the fact that she underwent an open right breast biopsy after stereo biopsy in 2018. This was benign. The patient had no complaints of any lumps masses or nodules in her breast. She tolerated the stereotactic core biopsy without difficulty. A biopsy revealed atypical ductal hyperplasia. She underwent a left breast needle localization and lumpectomy via reduction mammoplasty on . Postoperatively she is done very well. Her final pathology revealed focal atypical ductal hyperplasia slat/flat epithelial atypia. She at this time has marked asymmetry of the breast. The right breast is much larger than the left breast causing difficulty to find close to fit. Additionally she is experiencing back pain related to the macromastia on the right side. She has shoulder notching. The asymmetry causes psychologic distress secondary to her physical appearance, she is very self-conscious of this. Past surgical history: Right breast open biopsy Left breast biopsy via reduction mammoplasty incision Past medical history: Hypertension Family history: Maternal great aunt: Breast cancer Hormonal history: Menarche: 10 , breast fed positive, first at 19 Menopause: 48 Social history: Smoke: Stopped 11 years ago Alcohol: Occasional Drugs: Negative Review of systems: HEENT wears glasses Lungs: Negative Heart: Negative GI: Negative : Urinary tract infections in the past Musculoskeletal: Negative ALLERGIES: Seasonal Hematologic: Negative Objective - Vital Signs Vital signs: Vital Signs Temp 98.0 F 01/28/22 12:39 Pulse 86 01/28/22 12:39 Resp 16 01/28/22 12:39 BP 126/65 01/28/22 12:39 Pulse Ox 98 01/28/22 12:39 FiO2 Intake & Output 01/27/22 01/28/22 01/28/22 18:59 06:59 18:59 Weight 94.801 kg - Exam BMI: 32.7 - Constitutional General appearance: Present: cooperative - EENT Eyes: Present: EOMI ENT: Present: hearing grossly normal - Neck Neck: Present: normal ROM - Respiratory Respiratory: bilateral: CTA - Cardiovascular Rhythm: regular Heart sounds: normal: S1, S2 - Gastrointestinal General gastrointestinal: Present: soft - Integumentary Integumentary: Present: normal turgor - Musculoskeletal Musculoskeletal: Present: gait normal - Psychiatric Psychiatric: Present: A&O x's 3, appropriate affect, intact judgment & insight - Additional findings Additional findings: Breast examination: Bra: Extra-large which does not fill well because the right breast is much larger than the left breast Inspection: Macromastia with asymmetry left breast smaller than the right breast, incisions left breast well healed at this time Palpation: Right breast: No dominant masses or notches of concern Right axilla: No adenopathy of concern Left breast: No dominant masses or nodules of concern Left axilla: No adenopathy of concern In the left breast in the periareolar region inferiorly was a small scab which was which came off today Assessment and Plan Assessment: Impression: Macromastia asymmetric resulting in back pain/shoulder notching/anxiety/difficulty finding clothes to fit Atypical hyperplasia left breast being followed closely Plan: Breast mammogram in May Bilateral mammogram due in July 2022 Recommend right breast reduction mammoplasty secondary to the asymmetric macromastia and resulting back pain, shoulder notching, anxiety, difficulty finding clothes to fit follow up in May CC: Dr. Spears
== END ==
LOC: WWCWWP 12:20
PROVIDERS: ATTEND Surgery
DX: N60.92 Unspecified benign mammary dysplasia of left breast (principal); N62 Hypertrophy of breast; F41.9 Anxiety disorder, unspecified; I10 Essential (primary) hypertension; Z87.891 Personal history of nicotine dependence

== ENCOUNTER → 2022-04-01 | Outpatient (CLI) | payer BC ==
[2022-04-01 08:36] VITALS: BP 153/78; PULSE 69; RESP 17; TEMP 98.7
--- NOTE | 2022-04-01 08:58 | P.PN ---
Subjective Progress Note Date: 04/01/22 Principal diagnosis: symptomatic asymmetry of the breast with right macromastia Symptomatic macromastia Atypical ductal hyperplasia left breast Cintia is a 61-year-old white female status stero-tactic core biopsy of the left breast on . Pathology revealed focal atypical ductal hyperplasia/flat epithelial atypia with microcalcifications. Of significance is the fact that she underwent an open right breast biopsy after stereo biopsy in 2018. This was benign. The patient had no complaints of any lumps masses or nodules in her breast. She tolerated the stereotactic core biopsy without difficulty. A biopsy revealed atypical ductal hyperplasia. She underwent a left breast needle localization and lumpectomy via reduction mammoplasty on . Postoperatively she is done very well. Her final pathology revealed focal atypical ductal hyperplasia /flat epithelial atypia. She at this time she has marked asymmetry of the breast. The right breast is much larger than the left breast causing difficulty to find clothes to fit. Additionally she is experiencing back pain related to the macromastia on the right side. She has shoulder notching. The asymmetry causes psychologic distress secondary to her physical appearance, she is very self-conscious of this. Past surgical history: Right breast open biopsy Left breast biopsy via reduction mammoplasty incision Past medical history: Hypertension Family history: Maternal great aunt: Breast cancer Hormonal history: Menarche: 10 , breast fed positive, first at 19 Menopause: 48 Social history: Smoke: Stopped 11 years ago Alcohol: Occasional Drugs: Negative Review of systems: HEENT wears glasses Lungs: Negative Heart: Negative GI: Negative : Urinary tract infections in the past Musculoskeletal: Negative ALLERGIES: Seasonal Hematologic: Negative Objective - Vital Signs Vital signs: Vital Signs Temp 98.7 F 04/01/22 08:34 Pulse 69 04/01/22 08:34 Resp 17 04/01/22 08:34 BP 153/78 04/01/22 08:34 Pulse Ox 100 04/01/22 08:34 FiO2 Intake & Output 03/31/22 04/01/22 04/01/22 18:59 06:59 18:59 Weight 93.894 kg - Exam BMI: 32.4 - Constitutional General appearance: Present: cooperative - EENT Eyes: Present: EOMI ENT: Present: hearing grossly normal - Neck Neck: Present: normal ROM - Respiratory Respiratory: bilateral: CTA - Cardiovascular Rhythm: regular Heart sounds: normal: S1, S2 - Gastrointestinal General gastrointestinal: Present: soft - Integumentary Integumentary: Present: normal turgor - Musculoskeletal Musculoskeletal: Present: gait normal - Psychiatric Psychiatric: Present: A&O x's 3, appropriate affect, intact judgment & insight - Additional findings Additional findings: Breast Exam: Bra: Extra-large which does not fill well on the left because the right breast is much larger than the left Inspection: Macromastia with asymmetry left breast smaller than the right, i ncisions left breast well healed at this time Palpation: Right breast: No dominant masses or nodules of concern Right axilla: No adenopathy of concern Left breast: No dominant masses or nodules of concern Left axilla: No adenopathy of concern Assessment and Plan Assessment: Impression: Macromastia of the right breast which is asymmetric to the left resulting in BX pain/shoulder notching/anxiety/difficulty finding clothes to fit Atypical hyperplasia left breast been followed closely Plan: Left breast mammogram in May Bilateral mammogram due July 2022 Right breast reduction mammoplasty secondary to the asymmetric macromastia and symptomatic back pain, shoulder notching, anxiety, and difficulty finding clothes to fit medical clearance Dr. Spears CC: Dr. Spears Risks and benefits of the procedure discussed with the patient. Risks include but are not limited to bleeding, infection, reaction to the anesthetic. Additionally difficulty with wound healing could occur. The patient may have some decreased sensation to the nipple areolar complex or loss of portion or all of the nipple areolar complex. She understands and wishes to proceed.
== END | disposition home or self-care (01) ==
LOC: WWCWWP 08:23
PROVIDERS: ATTEND Surgery
DX: Z53.9 Procedure and treatment not carried out, unspecified reason (principal)

== ENCOUNTER 2022-05-03 08:53 | Day surgery (SDC) | payer BC ==
[2022-04-28 15:44] VITALS: BMI 32.7
[~2022-05-03 08:53] MED LIST changes: -LIDOCAINE 1% (10MG/ML) FOR IV START INTRADERMA PRN; -METOCLOPRAMIDE 5 MG/ML 2 ML VIAL IVP PRN
[2022-05-03] MEDS ORDERED: LIDOCAINE 1% (10MG/ML) FOR IV START INTRADERMA ONE (09:38)
[2022-05-03] MEDS ORDERED: MIDAZOLAM 2 MG/2 ML VIAL IVP ONE (09:47)
--- NOTE | 2022-05-03 12:47 | P.PN ---
Subjective Progress Note Date: 05/03/22 Principal diagnosis: Symptomatic asymmetry of the breast with right macromastia Left breast atypical ductal hyperplasia symptomatic asymmetry of the breast with right macromastia Symptomatic macromastia Atypical ductal hyperplasia left breast Cintia is a 61-year-old white female status stero-tactic core biopsy of the left breast on . Pathology revealed focal atypical ductal hyperplasia/flat epithelial atypia with microcalcifications. Of significance is the fact that she underwent an open right breast biopsy after stereo biopsy in 2018. This was benign. The patient had no complaints of any lumps masses or nodules in her breast. She tolerated the stereotactic core biopsy without difficulty. A biopsy revealed atypical ductal hyperplasia. She underwent a left breast needle localization and lumpectomy via reduction mammoplasty on . Postoperatively she is done very well. Her final pathology revealed focal atypical ductal hyperplasia /flat epithelial atypia. She at this time she has marked asymmetry of the breast. The right breast is much larger than the left breast causing difficulty to find clothes to fit. Additionally she is experiencing back pain related to the macromastia on the right side. She has shoulder notching. The asymmetry causes psychologic distress secondary to her physical appearance, she is very self-conscious of this. Past surgical history: Right breast open biopsy Left breast biopsy via reduction mammoplasty incision Past medical history: Hypertension Family history: Maternal great aunt: Breast cancer Hormonal history: Menarche: 10 , breast fed positive, first at 19 Menopause: 48 Social history: Smoke: Stopped 11 years ago Alcohol: Occasional Drugs: Negative Review of systems: HEENT wears glasses Lungs: Negative Heart: Negative GI: Negative : Urinary tract infections in the past Musculoskeletal: Negative ALLERGIES: Seasonal Hematologic: Negative Objective - Vital Signs Vital signs: Vital Signs Temp 98.7 F 05/03/22 09:28 Pulse 69 05/03/22 10:06 Resp 16 05/03/22 10:06 BP 125/71 05/03/22 10:06 Pulse Ox 95 05/03/22 10:06 FiO2 Intake & Output 05/02/22 05/03/22 05/03/22 18:59 06:59 18:59 Weight 94.6 kg - Exam BMI: 32.7 - Constitutional General appearance: Present: cooperative - EENT Eyes: Present: EOMI ENT: Present: hearing grossly normal - Neck Neck: Present: normal ROM - Respiratory Respiratory: bilateral: CTA - Cardiovascular Rhythm: regular Heart sounds: normal: S1, S2 - Gastrointestinal General gastrointestinal: Present: soft - Integumentary Integumentary: Present: normal turgor - Musculoskeletal Musculoskeletal: Present: gait normal - Psychiatric Psychiatric: Present: A&O x's 3, appropriate affect, intact judgment & insight - Additional findings Additional findings: Breast examination: Block: Extra-large which does not fit well on the left because the right is much larger than the left Inspection: Macromastia with asymmetry left breast smaller than the right, incisions left breast well-healed at this time Palpation: Right breast: No dominant mass or nodules of concern Right axilla: No adenopathy of concern Left breast: No dominant masses or nodules of concern Left axilla: No adenopathy of concern Assessment and Plan Assessment: Impression: Macromastia of the right breast which is asymmetric to the left resulting in shoulder pain/notching/anxiety/difficulty finding clothes to fit Atypical hyperplasia left breast has been followed closely Plan: Left breast mammogram in May Multiple bilateral mammogram due July 2022 Right breast reduction mammoplasty secondary to the asymmetry The risk and benefits of procedure discussed with the patient. Risks include but are not limited to bleeding, infection, reaction to the anesthetic. Additionally difficulty with wound healing could occur. The patient may have some decreased sensation to the nipple areolar complex or loss of a portion of the nipple areolar complex. She understands and wishes to proceed.
--- NOTE | 2022-05-03 13:34 | MM ---
Reason for Exam: Screening (asymptomatic). Last mammogram was performed 1 year(s) and 4 month(s) ago. Patient History: Menarche at age 11. First Full-Term at age 19. Postmenopausal. Previous Atypical Ductal Hyperplasia at age 61. 11/30/2021, High risk MG pre op needle loc LT on the left side. 08/27/2021, High risk Core Biopsy on the left side. 12/05/2017, Benign Core Biopsy on the right side. 09/28/2017, High risk Core Biopsy on the right side. Paternal aunt had breast cancer. Risk Values: Marley 5 year model risk: 4.1%. NCI Lifetime model risk: 16.6%. Prior Study Comparison: 01/13/2020 Bilateral Screening Mammogram, [facility]. 01/18/2021 Bilateral Screening Mammogram, [facility] 07/21/2021 Left Diagnostic Mammogram, [facility]. Tissue Density: The breast tissue is heterogeneously dense. This may lower the sensitivity of mammography. Findings: Analyzed By CAD. There is asymmetry of the breast size with a larger right breast than left. Bilateral surgical clips from lobectomies are evident. Benign-appearing calcifications within the right breast. Surgical changes within the left breast. Patient is scheduled for breast reduction right breast. Follow-up exam 6 months following the breast reduction is recommended for new baseline. Overall Assessment: Benign, BI-RAD 2 Management: Diagnostic Mammogram of the right breast in 6 months. A clinical breast exam by your physician is recommended on an annual basis and results should be correlated with mammographic findings. This exam should not preclude additional follow-up of suspicious palpable abnormalities. Results were given to the patient verbally at the time of exam. Electronically signed and approved by: Manish Santiago D.O. Radiologis
[2022-05-03] MEDS ORDERED: LIDOCAINE 2% INJ 20 MG/ML (2 ML VIAL) ONE (13:50)
[2022-05-03] MEDS ORDERED: MIDAZOLAM 2 MG/2 ML VIAL ONE (13:50)
[2022-05-03] MEDS ORDERED: PROPOFOL 10 MG/ML 20 ML VIAL IV ONE (13:50)
[2022-05-03] MEDS ORDERED: KETOROLAC 15 MG/ML 1 ML VIAL ONE (13:50)
[2022-05-03] MEDS ORDERED: HYDROmorphone (PF) 1 MG/ML ONE (13:50)
[2022-05-03] MEDS ORDERED: fentaNYL (PF) 50 MCG/ML 2 ML AMP ONE (13:50)
[2022-05-03] MEDS ORDERED: SODIUM CHLORIDE 0.9% 50 ML with ceFAZolin 2,000 MG IV ONE ×2 (13:52)
[2022-05-03] MEDS ORDERED: LACTATED RINGERS 1,000 ML IV ONE (15:01)
--- NOTE | 2022-05-03 16:30 | P.OP ---
Date of Procedure: 05/03/22 Preoperative Diagnosis: Right breast macromastia Postoperative Diagnosis: Same Procedure(s) Performed: Right breast reduction mammoplasty Anesthesia: GEOFF Surgeon: Alejandra Addison Estimated Blood Loss (ml): 40 IV fluids (ml): 800 Pathology: other (Breast tissue/de-epithelialized skin) Condition: stable Disposition: same day Indications for Procedure: Asymmetry of the breast with right breast macromastia secondary to a left breast surgery for atypical hyperplasia Operative Findings: Right breast macromastia Description of Procedure: Cintia is a 61-year-old white female who underwent a left breast reduction mammoplasty for atypical hyperplasia. She had right breast macromastia and asymmetry was scheduled for a right breast reduction mammoplasty. Preoperatively bilateral mammogram was performed patient did not show any lesions of concern in either breast. The patient was recommended to have a repeat right breast mammogram in 6 months as a baseline post procedure. In the preoperative area markings were made for a mammoplasty. The patient was brought to the operative suite. Following induction of anesthesia both breasts were prepped and draped in a sterile fashion. The markings were for a inferior pedicle reduction mammoplasty. The donor was used to size the nipple areolar complex on the left and the size was 50. This was marked on the right breast. The inferior pedicle flap which had been outlined in the preoperative area was de-epithelialized. Using the marked pattern area for frozen section was removed medially and laterally and superiorly. The wound was well irrigated. After assured that hemostasis was attained 2 #10 ELDON drains were placed. The deep tissues were brought together using 3-0 Vicryl suture. This was followed by closure of the incisions using interrupted 3-0 Vicryl suture. This was followed by 3-0 running Vicryl suture. This was followed by 4-0 Monocryl running sutures. This was followed by 4-0 nylon suture. The specimen was removed in continuity. This weighed approximately 1.02 pounds. All instrument and sponge counts were correct at the end of the case. The patient tolerated the procedure in stable condition.
--- NOTE | 2022-05-03 16:32 | P.DS ---
Providers Attending physician: Alejandra Addison Primary care physician: Manish Spears Plan - Discharge Summary Discharge Rx Participant: No New Discharge Prescriptions: No Action hydroCHLOROthiazide [Hydrodiuril] 25 mg PO QAM lisinopriL [Zestril] 10 mg PO HS Calcium Carbonate/Vitamin D3 [Caltrate 600 Plus D3 Tablet] 1 each PO BID Ascorbic Acid [Vitamin C] 500 mg PO DAILY Atorvastatin [Lipitor] 10 mg PO HS Acetaminophen Tab [Tylenol Tab] 1,000 mg PO Q6HR Discharge Medication List Calcium Carbonate/Vitamin D3 [Caltrate 600 Plus D3 Tablet] 1 each PO BID 09/14/17 [History] hydroCHLOROthiazide [Hydrodiuril] 25 mg PO QAM 09/14/17 [History] lisinopriL [Zestril] 10 mg PO HS 09/14/17 [History] Atorvastatin [Lipitor] 10 mg PO HS 01/22/21 [History] Ascorbic Acid [Vitamin C] 500 mg PO DAILY 04/28/22 [History] Acetaminophen Tab [Tylenol Tab] 1,000 mg PO Q6HR 05/02/22 [History] Follow up Appointment(s)/Referral(s): Alejandra Addison MD [STAFF PHYSICIAN] - 05/12/22 12:20 pm Activity/Diet/Wound Care/Special Instructions: Teaching patient drain care, patient to drain and record output twice a day and as needed from each drain Patient may shower after 48 hours Rare bra at all times Do not drive until seen by Dr. Willoughby Discharge Disposition: HOME SELF-CARE
[2022-05-03 16:57] VITALS: TEMP 97.3
[2022-05-03 17:12] VITALS: RESP 16
[2022-05-03 18:05] VITALS: BP 137/72; PULSE 76
== END 2022-05-03 18:28 | disposition home or self-care (01) ==
LOC: OR 08:53
PROVIDERS: ATTEND Surgery
DX: N62 Hypertrophy of breast (principal); N60.91 Unspecified benign mammary dysplasia of right breast; I10 Essential (primary) hypertension; Z98.891 History of uterine scar from previous surgery; Z80.3 Family history of malignant neoplasm of breast; F41.9 Anxiety disorder, unspecified
CPT/HCPCS: 77067; 77063; 19318; J2250; J1100; J2405; J0690; J3010; J1170 ×2; J1885; J2704; J1644; J2001; 88305

== ENCOUNTER → 2022-05-12 | Outpatient (CLI) | payer BC ==
--- NOTE | 2022-05-12 11:33 | P.PN ---
Progress Note - Text Progress Note Date: 05/12/22 Cintia is supposed right breast reduction mammoplasty on . Postprocedure she is doing well without complaints. Pathology was benign. The patient is doing well at this time. Drains have minimal output. Physical exam: Lungs: Clear Heart: Regular rate and rhythm Incision: Clean and dry ELDON drains minimal output Plan: DC ELDON drains DC sutures Follow-up 2 weeks CC: Dr. Spears
== END | disposition home or self-care (01) ==
LOC: WWCWWP 11:15
PROVIDERS: ATTEND Surgery
DX: Z53.9 Procedure and treatment not carried out, unspecified reason (principal)

== ENCOUNTER → 2022-06-02 | Outpatient (CLI) | payer BC ==
[2022-06-02 09:44] VITALS: BP 150/92; PULSE 69; RESP 18; TEMP 98.4
--- NOTE | 2022-06-02 09:55 | P.PN ---
Progress Note - Text Progress Note Date: 06/02/22 Cintia is supposed right breast reduction mammoplasty on . Postprocedure she is doing well without complaints. Pathology was benign. The patient is doing well at this time. Physical exam: Lungs: Clear Heart: Regular rate and rhythm Incision: Clean and dry Plan: Patient is due for bilateral mammogram in May 2023, repeat bilateral mammogram May 2023 with appointment at that time CC: Dr. Spears
== END ==
LOC: WWCWWP 08:56
PROVIDERS: ATTEND Surgery
DX: Z98.86 Personal history of breast implant removal (principal); Z87.891 Personal history of nicotine dependence

== ENCOUNTER → 2022-12-02 | Outpatient (CLI) | payer BC ==
--- NOTE | 2022-12-02 12:28 | MM ---
Reason for Exam: High risk patient. Last screening mammogram was performed 7 month(s) ago. Patient History: Menarche at age 11. First Full-Term at age 19. Postmenopausal. Previous Atypical Ductal Hyperplasia at age 61. 2021, Bilateral Reduction. 11/30/2021, High risk MG pre op needle loc LT on the left side. 08/27/2021, High risk Core Biopsy on the left side. 12/05/2017, Benign Core Biopsy on the right side. 09/28/2017, High risk Core Biopsy on the right side. Paternal aunt had breast cancer. Risk Values: Marley 5 year model risk: 4.2%. NCI Lifetime model risk: 16.1%. Prior Study Comparison: 01/18/2021 Bilateral Screening Mammogram, [facility]. 07/21/2021 Left Diagnostic Mammogram, [facility]. 05/03/2022 Bilateral MG 3D screening mammo w/cad, [facility]. Tissue Density: Left: The breast tissue is heterogeneously dense. This may lower the sensitivity of mammography. Findings: Analyzed By CAD. Persistent distortion from reduction in the left breast with surgical clips posteriorly redemonstrated. No suspicious new mass or worrisome group of microcalcifications in the left breast. Overall Assessment: Benign, BI-RAD 2 Management: Diagnostic Mammogram of both breasts in 1 year. . Results were given to the patient verbally at the time of exam. Patient should continue monthly self-breast exams. A clinical breast exam by your physician is recommended on an annual basis. This exam should not preclude additional follow-up of suspicious palpable abnormalities. Note on Marley scores and lifetime risk: 1. A Marley score greater than 3% is considered moderate risk. If this is the case, consider specialist referral to assess eligibility for a risk reducing agent. 2. If overall lifetime risk for the development of breast cancer is 20% or higher, the patient may qualify for future screening with alternating mammogram and breast MRI. Electronically signed and approved by: Abhilash Gomez M.D.
--- NOTE | 2022-12-02 12:36 | P.PN ---
Subjective Progress Note Date: 12/02/22 Principal diagnosis: high Risk ADH left breast/declined chemoprophylaxis Atypical ductal hyperplasia left breast Cintia is a 61-year-old white female status stero-tactic core biopsy of the left breast on . Pathology revealed focal atypical ductal hyperplasia/flat epithelial atypia with microcalcifications. Of significance is the fact that she underwent an open right breast biopsy after stereo biopsy in 2018. This was benign. The patient had no complaints of any lumps masses or nodules in her breast. She tolerated the stereotactic core biopsy without difficulty. A biopsy revealed atypical ductal hyperplasia. She underwent a left breast needle localization and lumpectomy via reduction mammoplasty on . Postoperatively she is done very well. Her final pathology revealed focal atypical ductal hyperplasia /flat epithelial atypia. Secondary to breast asymmetry she underwent a right breast reduction mammoplasty and . She underwent a bilateral screening mammogram on which was benign BIRADS 2. Secondary to the ADH in the left breast we have discussed chemoprophylaxis at this time she has declined. Past surgical history: Right breast open biopsy Left breast biopsy via reduction mammoplasty incision right breast reduction mammoplasty Past medical history: Hypertension Family history: Maternal great aunt: Breast cancer Hormonal history: Menarche: 10 , breast fed positive, first at 19 Menopause: 48 Social history: Smoke: Stopped 11 years ago Alcohol: Occasional Drugs: Negative Review of systems: HEENT wears glasses Lungs: Negative Heart: Negative GI: Negative : Urinary tract infections in the past Musculoskeletal: Negative ALLERGIES: Seasonal Hematologic: Negative Objective - Constitutional General appearance: Present: cooperative - EENT Eyes: Present: EOMI ENT: Present: hearing grossly normal - Neck Neck: Present: normal ROM - Respiratory Respiratory: bilateral: CTA - Cardiovascular Heart sounds: normal: S1, S2 - Gastrointestinal General gastrointestinal: Present: soft - Integumentary Integumentary: Present: normal turgor - Musculoskeletal Musculoskeletal: Present: gait normal - Psychiatric Psychiatric: Present: A&O x's 3, appropriate affect, intact judgment & insight - Additional findings Additional findings: Breast Exam: Bra: Inspection: bilateral well healed scars Palpation: Right breast: No dominant masses or nodules of concern Right axilla: No adenopathy of concern Left breast: No dominant masses or nodules of concern Left axilla: No adenopathy of concern Assessment and Plan Assessment: Impression: right breast mammogram on 12-02-22 BIRAD 2 Atypical hyperplasia left breast been followed closely bilateral mammogram 05-03-22 Plan: Bilateral mammogram May 2023 with appointment at that time CC: Dr. Spears
== END | disposition home or self-care (01) ==
LOC: RADMAMWWP 11:50
PROVIDERS: ATTEND Surgery
DX: N60.92 Unspecified benign mammary dysplasia of left breast (principal); N64.89 Other specified disorders of breast; I10 Essential (primary) hypertension; Z78.0 Asymptomatic menopausal state; Z85.3 Personal history of malignant neoplasm of breast; Z80.3 Family history of malignant neoplasm of breast
CPT/HCPCS: 77061; 77065

== ENCOUNTER → 2022-12-02 | Outpatient (CLI) | payer BC ==
--- NOTE | 2022-12-02 11:36 | MM ---
Reason for Exam: Follow-up at short interval from prior study. Last screening mammogram was performed 7 month(s) ago. Patient History: Menarche at age 11. First Full-Term at age 19. Postmenopausal. Previous Atypical Ductal Hyperplasia at age 61. 2021, Bilateral Reduction. 11/30/2021, High risk MG pre op needle loc LT on the left side. 08/27/2021, High risk Core Biopsy on the left side. 12/05/2017, Benign Core Biopsy on the right side. 09/28/2017, High risk Core Biopsy on the right side. Paternal aunt had breast cancer. Risk Values: Marley 5 year model risk: 4.2%. NCI Lifetime model risk: 16.1%. Prior Study Comparison: 01/18/2021 Bilateral Screening Mammogram, [facility]. 07/21/2021 Left Diagnostic Mammogram, [facility]. 05/03/2022 Bilateral MG 3D screening mammo w/cad, [facility]. Tissue Density: Right: The breast tissue is heterogeneously dense. This may lower the sensitivity of mammography. Findings: Analyzed By CAD. Interval surgery with removal of surgical clips in the right breast. There are benign-appearing round calcifications throughout the right breast anteriorly redemonstrated. No suspicious new group of microcalcifications or focal mass in either breast. Overall Assessment: Benign, BI-RAD 2 Management: Screening Mammogram of both breasts in 5 months. Back on annual schedule. Results were given to the patient verbally at the time of exam. Patient should continue monthly self-breast exams. A clinical breast exam by your physician is recommended on an annual basis. This exam should not preclude additional follow-up of suspicious palpable abnormalities. Note on Marley scores and lifetime risk: 1. A Marley score greater than 3% is considered moderate risk. If this is the case, consider specialist referral to assess eligibility for a risk reducing agent. 2. If overall lifetime risk for the development of breast cancer is 20% or higher, the patient may qualify for future screening with alternating mammogram and breast MRI. Electronically signed and approved by: Abhilash Gomez M.D.
== END ==
LOC: RADMAMWWP 10:57
PROVIDERS: ATTEND Surgery
DX: Z78.0 Asymptomatic menopausal state (principal); Z85.3 Personal history of malignant neoplasm of breast; Z80.3 Family history of malignant neoplasm of breast
CPT/HCPCS: 77061; 77065

== ENCOUNTER → 2022-12-02 | Outpatient (CLI) | payer BC ==
[2022-12-02 12:23] VITALS: BP 150/81; PULSE 56; RESP 17; TEMP 97.9
== END ==
LOC: WWCWWP 11:00
PROVIDERS: ATTEND Surgery
DX: Z53.9 Procedure and treatment not carried out, unspecified reason (principal)

== ENCOUNTER → 2023-12-07 | Outpatient (CLI) | payer BC ==
--- NOTE | 2023-12-07 21:16 | MM ---
Reason for Exam: Screening (asymptomatic). Last screening mammogram was performed 12 month(s) ago. Patient History: Menarche at age 11. First Full-Term at age 19. Postmenopausal. Previous Atypical Ductal Hyperplasia at age 61. 2021, Bilateral Reduction. 11/30/2021, High risk MG pre op needle loc LT on the left side. 08/27/2021, High risk Core Biopsy on the left side. 12/05/2017, Benign Core Biopsy on the right side. 09/28/2017, High risk Core Biopsy on the right side. Paternal aunt had breast cancer. Risk Values: Marley 5 year model risk: 4.3%. NCI Lifetime model risk: 15.6%. Prior Study Comparison: 12/02/2022 Right MG 3D diag mammo w/cad RT, [facility]. 12/02/2022 Bilateral MG 3D diag mammo w/cad [facility]RI[facility], [facility]. 12/02/2022 Left MG 3D diag mammo w/cad LT, [facility]. Tissue Density: The breasts are heterogeneously dense, which may obscure small masses. Findings: Analyzed By CAD. Postsurgical change redemonstrated both breasts. The distortion corresponding to postsurgical scar along the central inner aspect of the left breast is unchanged. There is no suspicious group of microcalcifications or new suspicious mass in either breast. Overall Assessment: Benign, BI-RAD 2 Management: Screening Mammogram of both breasts in 1 year. See note below in regards to patient's increased 5 year Marley score. Patient should continue monthly self-breast exams. A clinical breast exam by your physician is recommended on an annual basis. This exam should not preclude additional follow-up of suspicious palpable abnormalities. Note on Marley scores and lifetime risk: 1. A Marley score greater than 3% is considered moderate risk. If this is the case, consider specialist referral to assess eligibility for a risk reducing agent. 2. If overall lifetime risk for the development of breast cancer is 20% or higher, the patient may qualify for future screening with alternating mammogram and breast MRI. Electronically signed and approved by: Lashonda Lomas M.D. Radiologist
== END | disposition home or self-care (01) ==
LOC: RADMAMWWP 12:29
PROVIDERS: ATTEND Surgery
DX: Z12.31 Encounter for screening mammogram for malignant neoplasm of breast (principal); Z85.3 Personal history of malignant neoplasm of breast; Z78.0 Asymptomatic menopausal state; Z80.3 Family history of malignant neoplasm of breast
CPT/HCPCS: 77067

== ENCOUNTER → 2023-12-18 | Outpatient (CLI) | payer BC ==
[2023-12-18 10:49] VITALS: BP 151/73; PULSE 57; RESP 17; TEMP 97.8
--- NOTE | 2023-12-18 10:52 | P.PN ---
Subjective Progress Note Date: 12/18/23 high Risk ADH left breast/declined chemoprophylaxis Cintia is a 61-year-old white female status stero-tactic core biopsy of the left breast on . Pathology revealed focal atypical ductal hyperplasia/flat epithelial atypia with microcalcifications. Of significance is the fact that she underwent an open right breast biopsy after stereo biopsy in 2018. This was benign. The patient had no complaints of any lumps masses or nodules in her breast. She tolerated the stereotactic core biopsy without difficulty. She underwent a left breast needle localization and lumpectomy via reduction mammoplasty on . Postoperatively has done very well. Her final pathology revealed focal atyp ical ductal hyperplasia /flat epithelial atypia. Secondary to breast asymmetry she underwent a right breast reduction mammoplasty and . She underwent a bilateral screening mammogram on 12-02-22 which was benign BIRADS 2. He is not complaining of any new lumps masses or nodules of concern in either breast. Secondary to the ADH in the left breast we have discussed chemoprophylaxis at this time she has declined. Marley score: 5 years 4.2% lifetime risk: 16.2% Past surgical history: Right breast open biopsy Left breast biopsy via reduction mammoplasty incision right breast reduction mammoplasty Past medical history: Hypertension Family history: Maternal great aunt: Breast cancer Hormonal history: Menarche: 10 , breast fed positive, first at 19 Menopause: 48 Social history: Smoke: Stopped 11 years ago Alcohol: Occasional Drugs: Negative Review of systems: HEENT wears glasses Lungs: Negative Heart: Negative GI: Negative : Urinary tract infections in the past Musculoskeletal: Negative ALLERGIES: Seasonal Hematologic: Negative Objective - Constitutional General appearance: Present: cooperative - EENT ENT: Present: hearing grossly normal - Neck Neck: Present: normal ROM - Respiratory Respiratory: bilateral: CTA - Cardiovascular Rhythm: regular Heart sounds: normal: S1, S2 - Integumentary Integumentary: Present: normal turgor - Musculoskeletal Musculoskeletal: Present: gait normal - Psychiatric Psychiatric: Present: A&O x's 3, appropriate affect, intact judgment & insight - Additional findings Additional findings: Breast Exam: Bra: Inspection: bilateral well healed scars Palpation: Right breast: No dominant masses or nodules of concern Right axilla: No adenopathy of concern Left breast: No dominant masses or nodules of concern Left axilla: No adenopathy of concern Patient is sweating and has mild fungal infection under both breast right greater than the left Assessment and Plan Assessment: Impression: Bilateral mammogram 12-07-2023 BI-RADS 2 Atypical hyperplasia left breast been followed closely Fungal infection under both breast Plan: Bilateral mammogram 1 year with examination at that time Nystatin to affected area under breast follow-up of any concerns with healing Follow-up sooner any questions or concerns CC: Dr. Spears
== END ==
LOC: WWCWWP 10:29
PROVIDERS: ATTEND Surgery
DX: R92.8 Other abnormal and inconclusive findings on diagnostic imaging of breast (principal); N60.92 Unspecified benign mammary dysplasia of left breast; B37.2 Candidiasis of skin and nail; Z80.3 Family history of malignant neoplasm of breast; Z87.891 Personal history of nicotine dependence